=== PATIENT | male | born 1940 | race Caucasian/White ===

== ENCOUNTER → 2019-11-19 10:33 | Outpatient (BNVA) | payer MEDICARE, OTHER, SELFPAY | PROVIDERS: Family Provider Family Medicine; PCP Family Medicine; Visit Provider Urology | DX: N39.9 Disorder of urinary system, unspecified (principal); N40.0 Benign prostatic hyperplasia without lower urinary tract symptoms | CPT/HCPCS: 81001 ==

== ENCOUNTER 2019-12-11 07:28 | Outpatient (CLI) | payer MEDICARE, OTHER, SELFPAY ==
--- NOTE | 2019-12-11 08:00 | US_ITS ---
WS: [id number] ULTRASOUND RENAL TECHNIQUE: Ultrasound examination of both kidneys. CLINICAL INFORMATION: RENAL U/S AND [email or web address] 12/11/19 8:15AM. APPT TO FOLLOW COMPARISON: None. FINDINGS: RIGHT: Right kidney is normal in size and appearance. Echogenicity: Normal. Cortical thickness: 1.4 cm; Normal. Hydronephrosis: None. Perinephric fluid: None. Right kidney measures: 9.7 cm x 4.1 cm x 4.5 cm. LEFT: Left kidney is normal in size and appearance. Echogenicity: Normal. Cortical thickness: 1.4 cm; Normal. Hydronephrosis: None. Perinephric fluid: None. Left kidney measures: 10.3 cm x 4.3 cm x 5.2 cm. Normal visualized aorta. Bladder decompressed. US/US renal BI* [id number] IMPRESSION: Normal renal ultrasound. Bladder decompressed.
--- NOTE | 2019-12-11 08:15 | XRR_ITS ---
PROCEDURE INFORMATION: Exam: XR Abdomen, 1 View Exam date and time: 12/11/2019 7:21 AM Age: 79 years old Clinical indication: Condition or disease; Kidney or ureter condition; Calculus (stone) in ureter; Prior surgery; Surgery type: Colostomy; Additional info: Ureteral stone TECHNIQUE: Imaging protocol: XR of the abdomen. Views: Frontal supine view of the abdomen. 1 View. COMPARISON: No relevant prior studies available. FINDINGS: Gastrointestinal tract: There is increased retained stool throughout the colon, compatible with constipation. Organs: Punctate calcification projects over the expected location of the right kidney. Bones/joints: There is a moderate lumbar levoscoliosis. XR/XR KUB [id number] IMPRESSION: 1. Constipation. 2. Suspected right renal calculus.
== END 2019-12-11 07:29 | disposition home or self-care (01) ==
LOC: US 07:31
PROVIDERS: Family Provider Family Medicine; PCP Family Medicine; Visit Provider Urology
DX: N20.1 Calculus of ureter (principal); K59.00 Constipation, unspecified
CPT/HCPCS: 74018; 76770; 81001

== ENCOUNTER 2019-12-12 09:34 | Outpatient (CLI) | payer MEDICARE, OTHER, SELFPAY ==
--- NOTE | 2019-12-12 11:00 | CT_ITS ---
WS: [id number] CT ABDOMEN PELVIS TECHNIQUE: Noncontrast CT of the abdomen and pelvis with coronal and sagittal reformatted images. CLINICAL INFORMATION: Stone COMPARISON: CT 5 20,012 DLP: 883.[address] scans at [facility] use at least one of these dose optimization techniques: automat ed exposure control; mA and/or kV adjustment per patient size (includes targeted exams where dose is matched to clinical indication); or iterative reconstruction. FINDINGS: Prior postoperative appendectomy and colostomy. Dense cholelithiasis. No gallbladder wall thickening. Recommend follow-up with ultrasound. Noncontrast liver is normal. Lung bases are well aerated. Fatty atrophy of the pancreas. Noncontrast spleen is normal. Normal GE junction. Adrenal glands are normal . Mild aortic calcification. Adrenal glands are normal. No hydronephrosis in either kidney. Slightly prominent left extrarenal pelvis. No obstructing renal o r ureteral calculi. Tiny nonobstructing right renal parenchymal calculus. Heterogeneous enlarged pros [place]mond with indentation on the bladder. Prostate measures 5.4 x 3.7 x 5.2 CCM. TURP Defect Sigmoid colon is normal. Fecal retention in the colon. No periaortic lymphadenopathy. Normal caliber abdominal aorta. Low-attenuation left pelvic sidewall collection likely represents seroma with calcif ication. This is decreased in size since 2011 measuring 4.4 x 2.1 CM. Fat-containing left inguinal he rnia. CT/CT kidney stone [id number] IMPRESSION: 1. No obstructing renal or ureteral calculi. No hydronephrosis. 2. Heterogeneous enlarged prostate. Recommend correlation PSA. TURP defect. 3. Low-attenuation benign fluid collection left pelvis has decreased in size s kaitlyn 2011. 4. Dense cholelithiasis.
== END 2019-12-12 09:35 | disposition home or self-care (01) ==
LOC: RAD 09:38
PROVIDERS: PCP Family Medicine; Visit Provider Urology
DX: N20.9 Urinary calculus, unspecified (principal); N40.0 Benign prostatic hyperplasia without lower urinary tract symptoms; K80.20 Calculus of gallbladder without cholecystitis without obstruction
CPT/HCPCS: 74176

== ENCOUNTER → 2020-01-15 09:15 | Outpatient (BNVA) | payer MEDICARE, OTHER, SELFPAY | PROVIDERS: PCP Family Medicine; Visit Provider Dermatology | DX: D18.01 Hemangioma of skin and subcutaneous tissue (principal); L82.1 Other seborrheic keratosis; L57.0 Actinic keratosis; Z85.828 Personal history of other malignant neoplasm of skin | CPT/HCPCS: 17000; 17003; 99203 ==

== ENCOUNTER → 2020-03-20 09:26 | Outpatient (BNVA) | payer MEDICARE, OTHER, SELFPAY | PROVIDERS: PCP Family Medicine; Visit Provider Urology | DX: R35.0 Frequency of micturition (principal) | CPT/HCPCS: 81001 ==

== ENCOUNTER 2021-03-16 08:42 | Outpatient (CLI) | payer MEDICARE, OTHER, SELFPAY ==
--- NOTE | 2021-03-16 08:58 | CT_ITS ---
WS: [id number] CT ANGIOGRAM CAROTID ARTERIES HISTORY: TIA TECHNIQUE: CT angiogram is performed of the carotid arteries. During arterial injection imaging is ob tained from the skull base to the aortic arch in 1.25 mm imaging. Coronal and sagittal reformats are submitted, MIP imaging also reviewed. Additional multiplanar reformats of the carotid arteries are rios bmitted. NASCET criteria utilized. All CT scans at [facility] use at least one of these dose optimization techniques: automated exposure control; mA and/or kV adjustment per patient size (includ es targeted exams where dose is matched to clinical indication); or iterative reconstruction. CONTRAST: Visipaque 320; 95 mL IV. DLP: 1769.46 mGy.cm COMPARISON: 04/12/2018 Right carotid: Common carotid artery: Arises normally from the innominate artery. No significant plaque or stenosis. Internal carotid artery: Mild atherosclerotic plaque at the bifurcation. Small amount of scattered pl aque and intimal thickening in the bifurcation. Short segment in which the carotid arteries being obs cured at the skull base from the dental amalgam. The skull base there is scattered plaque through the cavernous sinuses but no high-grade occlusions. External carotid artery: Patent. Left carotid: Common carotid artery: Arises normally from the aortic arch. No significant stenosis. Internal carotid artery: Small amount of plaque at the bifurcation. No high-grade stenosis. Similar t o the prior study. External carotid artery: Patent. Right vertebral artery: Unremarkable. Left vertebral artery: Unremarkable. Arises normally from the left subclavian artery. Subclavian arteries: Small noncalcified plaque in the subclavians. No high-grade stenosis. Upper thorax: Normal. Thyroid gland: Prior thyroidectomy. Osseous structures: Moderate spondylitic changes in the cervical spine. Mild degenerative curvature a nd 2 mm anterolisthesis of C3. No fractures. Skull base: Negative. CT/CT angio neck [id number] IMPRESSION: 1. Less than 50% stenosis involving the cervical carotid arteries. No signific ant progression of disease since 04/12/2018. 2. Mild atherosclerosis subclavian arteries. 3. No cervical dissection or aneurysms. 4. Prior thyroidectomy.
[2021-03-16 10:12] LABS: Blood Urea Nitrogen 24 mg/dL (8-23)
[2021-03-16] MEDS: iodixanol 320 mg/mL 100mL Btl IV (10:39)
== END 2021-03-16 08:43 | disposition home or self-care (01) ==
LOC: RAD 08:46
PROVIDERS: PCP Family Medicine; Visit Provider Family Medicine
DX: I77.9 Disorder of arteries and arterioles, unspecified (principal); G45.9 Transient cerebral ischemic attack, unspecified; E89.0 Postprocedural hypothyroidism; I70.8 Atherosclerosis of other arteries
CPT/HCPCS: 70498; 82565; 84520

== ENCOUNTER → 2021-11-26 07:51 | Outpatient (BNVA) | payer MEDICARE, OTHER, SELFPAY | PROVIDERS: PCP Family Medicine; Visit Provider Family Medicine | DX: R42 Dizziness and giddiness (principal); G45.9 Transient cerebral ischemic attack, unspecified; E03.9 Hypothyroidism, unspecified | CPT/HCPCS: 80053; 84443; 85025 ==

== ENCOUNTER 2021-12-10 10:27 | Outpatient (CLI) | payer MEDICARE, OTHER, SELFPAY ==
[2021-12-10 11:53] LABS: Rapid Plasma Reagin Syphilis Nonreactive (Nonreactive); Thyroid Stimulating Hormone 0.37 uIU/mL (0.27-4.20)
[2021-12-10 12:28] LABS: Vitamin B12 608 pg/mL (232-1245)
[2021-12-11 13:12] LABS: Erythrocyte Sedimentation Rate 6 mm/hr (0-10)
[2021-12-11 16:47] LABS: Anti-Double Strand DNA AB 7 IU/mL; Jo-1 Antibody <1.0 NEG AI (<1.0 NEG); SM/RNP Antibodies <1.0 NEG AI (<1.0 NEG); SS-B/LA IGG <1.0 NEG AI (<1.0 NEG); Scleroderma Ab(Scl-70) Ab <1.0 NEG AI (<1.0 NEG); Ss-A/Ro Igg <1.0 NEG AI (<1.0 NEG)
== END 2021-12-10 10:28 | disposition home or self-care (01) ==
LOC: LAB 10:35
PROVIDERS: PCP Family Medicine; Visit Provider Family Medicine
DX: R41.3 Other amnesia (principal)
CPT/HCPCS: 82607; 84443; 85651; 86140; 86225; 86235; 86592

== ENCOUNTER → 2022-04-20 08:25 | Outpatient (BNVA) | payer MEDICARE, OTHER, SELFPAY | PROVIDERS: PCP Family Medicine; Visit Provider Family Medicine | DX: Z00.00 Encounter for general adult medical examination without abnormal findings (principal); Z85.828 Personal history of other malignant neoplasm of skin; R41.3 Other amnesia; E78.5 Hyperlipidemia, unspecified | CPT/HCPCS: 80053; 80061; 84443; 85025 ==

== ENCOUNTER → 2022-10-06 07:51 | Outpatient (BNVA) | payer MEDICARE, OTHER, SELFPAY | PROVIDERS: PCP Family Medicine; Visit Provider Dermatology | DX: D03.61 Melanoma in situ of right upper limb, including shoulder (principal); L57.0 Actinic keratosis | CPT/HCPCS: 11606; 12034; 17000; 17003 ==

== ENCOUNTER → 2022-10-20 07:54 | Outpatient (BNVA) | payer MEDICARE, OTHER, SELFPAY | PROVIDERS: PCP Family Medicine; Visit Provider Dermatology | DX: R22.9 Localized swelling, mass and lump, unspecified (principal); Z48.02 Encounter for removal of sutures | CPT/HCPCS: 99212 ==

== ENCOUNTER → 2022-10-26 09:51 | Outpatient (BNVA) | payer MEDICARE, OTHER, SELFPAY | PROVIDERS: PCP Family Medicine; Visit Provider Dermatology | DX: Y99.9 Unspecified external cause status (principal); Z86.006 Personal history of melanoma in-situ; T81.31XA Disruption of external operation (surgical) wound, not elsewhere classified, initial encounter | CPT/HCPCS: 99213 ==

== ENCOUNTER → 2022-11-16 15:52 | Outpatient (BNVA) | payer MEDICARE, OTHER, SELFPAY | PROVIDERS: PCP Family Medicine; Visit Provider Dermatology | DX: L57.0 Actinic keratosis (principal); T07.XXXA Unspecified multiple injuries, initial encounter; Y99.9 Unspecified external cause status; Z86.006 Personal history of melanoma in-situ | CPT/HCPCS: 17000; 17003; 99213 ==

== ENCOUNTER → 2023-02-23 14:18 | Outpatient (BNVA) | payer MEDICARE, OTHER, SELFPAY | PROVIDERS: PCP Family Medicine; Visit Provider Dermatology | DX: Z86.006 Personal history of melanoma in-situ (principal); L82.1 Other seborrheic keratosis; L81.4 Other melanin hyperpigmentation; D18.01 Hemangioma of skin and subcutaneous tissue; L57.0 Actinic keratosis; L82.0 Inflamed seborrheic keratosis; Z85.828 Personal history of other malignant neoplasm of skin; Z87.891 Personal history of nicotine dependence | CPT/HCPCS: 17000; 17003; 17110; 99213 ==

== ENCOUNTER → 2023-05-02 08:00 | Outpatient (BNVA) | payer MEDICARE, OTHER, SELFPAY | PROVIDERS: PCP Family Medicine; Visit Provider Family Medicine | DX: Z00.00 Encounter for general adult medical examination without abnormal findings (principal); I10 Essential (primary) hypertension; F03.90 Unspecified dementia, unspecified severity, without behavioral disturbance, psychotic disturbance, mood disturbance, and anxiety; N52.9 Male erectile dysfunction, unspecified; R41.3 Other amnesia | CPT/HCPCS: 80053; 80061; 84403; 84443; 85025 ==

== ENCOUNTER 2023-05-04 20:11 | Emergency (ER) | payer MEDICARE, OTHER, SELFPAY ==
[2023-05-04 20:15] VITALS: BP 207/80; PULSE 48; RESP 17; O2SAT 99; BMI 23.0
--- NOTE | 2023-05-04 20:28 | ECG_ITS ---
[facility] Test Date: 2023-05-04 Pat Name: Delroy Adam Department: Room: Gender: Male Batter Out: : 1940 Requested By: Jimbo Cruz Order Number: [id number] Julito MD: Jesus Hernandez M.D. Measurements Intervals [place] Rate: 47 P: 64 MS: 231 QRS: -73 QRSD: 137 T: 46 QT: 432 QTc: 385 Interpretive Statements SINUS BRADYCARDIA WITH FIRST DEGREE AV BLOCK LEFT AXIS DEVIATION [QRS AXIS < -30] INTRAVENTRICULAR CONDUCTION DELAY [130+ ms QRS DURATION] MODERATE VOLTAGE CRITERIA FOR LVH, CONSIDER NORMAL VARIANT [MEETS CRITERIA IN ONE OF: R(aVL), S(V1), R(V5), R(V5/V6)+S(V1)] Compared to ECG 03/27/2018 23:29:02 Right bundle-branch block no longer present Electronically Signed On 05-05-2023 12:50:19 DISEASE EDUCATION SPECIALIST by Jesus Hernandez M.D. [id number]
--- NOTE | 2023-05-04 21:04 | XRR_ITS ---
PROCEDURE INFORMATION: Exam: XR Chest Exam date and time: 05/04/2023 9:51 PM Age: 82 years old Clinical indication: Other: Dizziness; Additional info: Dizziness, confusion, near syncope, HTN TECHNIQUE: Imaging protocol: Radiologic exam of the chest. Views: 1 view. COMPARISON: CR XR chest 1V [id number] 03/27/2018 5:42 PM FINDINGS: Lungs: Unremarkable. No consolidation. Pleural spaces: Unremarkable. No pleural effusion. No pneumothorax. Heart/Mediastinum: Unremarkable. No cardiomegaly. Bones/joints: Unremarkable. XR/XR chest 1V portable [id number] IMPRESSION: No acute findings.
--- NOTE | 2023-05-04 21:04 | CTR_ITS ---
PROCEDURE INFORMATION: Exam: CT Head Without Contrast Exam date and time: 05/04/2023 9:48 PM Age: 82 years old Clinical indication: Altered mental status/memory loss and dizziness; Confusion or disorientation; Additional info: Dizziness, confusion, near syncope TECHNIQUE: Imaging protocol: Computed tomography of the head without contrast. Radiation optimization: All CT scans at this facility use at least one of these dose optimization techniques: automated exposure control; mA and/or kV adjustment per patient size (includes targeted exams where dose is matched to clinical indication); or iterative reconstruction. REPORTING DATA: Count of CT and Cardiac NM exams in prior 12 months: This patient has received 0 known CTs and 0 known cardiac nuclear medicine studies in the 12 months prior to the current study. COMPARISON: MR head wo/w con [id number] 03/28/2018 2:40 PM RADIATION DOSE METRICS: Total DLP (mGy-cm): 1098 FINDINGS: Brain: Mild diffuse white matter disease likely reflecting chronic microvascular ischemic changes. Cerebral ventricles: No ventriculomegaly. Paranasal sinuses: Visualized sinuses are unremarkable. No fluid levels. Mastoid air cells: Visualized mastoid air cells are well aerated. Bones/joints: Unremarkable. No acute fracture. Soft tissues: Unremarkable. CT/CT head wo con* [id number] IMPRESSION: Negative for intracranial hemorrhage mass effect.
[2023-05-04 21:14] LABS: Basophils % 0.8 %; Eosinophils # 0.2 10^3/uL (0.0-0.8); Eosinophils % 3.8 %; Lymphocytes # 0.9 10^3/uL (0.8-4.8); Lymphocytes % 17.9 %; Mean Corpuscular HGB Conc 33.8 g/dL (30-55); Mean Corpuscular Hemoglobin 33.7 pg (27-33); Mean Corpuscular Volume 99.8 fl (82-101); Mean Platelet Volume 9.5 fL (7.4-10.4); Monocytes # 0.6 10^3/uL (0.2-0.9); Monocytes % 10.9 %; Neutrophils # 3.33 10^3/uL (1.8-7.7); Neutrophils % 66.2 %; Nucleated Red Blood Cells % 0 %; Platelet Count 137 10^3/cmm (157-399); Red Blood Count 4.21 10^6/uL (3.85-5.65); Red Cell Distribution Width 11.8 % (12.1-15.1); White Blood Count 5.03 10^3/uL (3.29-11.43)
--- NOTE | 2023-05-04 21:28 | W.ED.DIZZY ---
HPI - Dizziness General: Chief Complaint: Dizziness Stated Complaint: near syncope Time Seen by Provider: 05/04/23 20:57 History of Present Illness: HPI Narrative: Patient presents to the ER by EMS with family at bedside. Patient states he does not have any problems at all and no complaints at this time. Family states patient has had some worsening confusion over the last several days and does have a history of Alzheimer's. Patient went to the doctor today for just a normal checkup and med refills and when the daughter and son was helping him get into the car he nearly had a syncopal episode so they called EMS. Patient also had a near syncopal episode at suppertime. Patient denies any complaints at this time. Patient does say he rides a bicycle a lot so he has a low resting heart rate. Review of Systems General: Reports: 10 or more systems reviewed and unremarkable except in HPI and below PFSH ED PFSH: Medical History BPH (benign prostatic hyperplasia) Dementia GERD (gastroesophageal reflux disease) History of nonmelanoma skin cancer Hydrocele Hyperlipemia Hypertension Hypothyroid Skin cancer Urinary frequency Surgical History H/O eye surgery H/O hernia repair H/O knee surgery H/O transurethral resection of prostate H/O vasectomy S/P appendectomy S/P thyroidectomy S/P tonsillectomy and adenoidectomy Family History Family/Other Hypertension Hyperlipidemia Social History Smoking and tobacco/nicotine status: former use of tobacco/nicotine Alcohol intake: current Alcohol intake frequency: 0-2 Drinks per Day Alcohol type: wine Substance/Drug Use: never Marital status: Physical Exam Const: COMMON NORMALS: no acute distress, average body habitus, patient oriented x3, no limitations, healthy appearing, alert and well nourished HENMT: COMMON NORMALS: normocephalic, atraumatic, hearing grossly normal bilaterally, external ears normal, Normal external nose present, moist oral mucous membranes and oropharynx normal HEAD & SCALP: normocephalic and atraumatic NOSE: Normal external nose present EXTERNAL EAR: Yes external ears normal Eye: COMMON NORMALS: Equal, round and reactive pupils present, EOMs intact bilaterally, conjunctivae normal and no scleral icterus CONJUNCTIVA: Yes conjunctivae normal PUPIL: Yes Equal, round and reactive pupils present Neck/C-Spine: COMMON NORMALS: full ROM, no lymphadenopathy, supple, no meningeal signs, no JVD and Thyroid normal THYROID: Thyroid normal Chest: COMMONS NORMALS: normal inspection of the chest and normal palpation of entire chest wall Resp: COMMON NORMALS: normal respiratory effort, No retractions, No use of accessory muscles and clear to auscultation bilaterally AUSCULTATION: clear to auscultation bilaterally Cardio: COMMON NORMALS: no JVD, regular rhythm, S1 normal heart sound present, S2 normal heart sound present, No gallops present (Cardio), No clicks present (Cardio), No murmurs present (Cardio) and No rub (Cardio); negative for regular rate (Bradycardic) RATE: abnormal rate (Bradycardic) RHYTHM: regular rhythm HEART SOUNDS: S1 normal heart sound present and S2 normal heart sound present GI: COMMON NORMALS: Normal to inspection, nondistended, normoactive bowel sounds present, Soft to palpation, non-tender, No hepatosplenomegaly present and no masses PALPATION: Yes Soft to palpation and Yes No hepatosplenomegaly present Neuro: COMMON NORMALS: patient oriented x3 SENSORIUM/ORIENTATION: Yes alert MENINGEAL SIGNS: Yes no meningeal signs Course Vital Signs: Vital signs: Vital Signs Pulse Rate 47 L 05/04/23 23:55 Respiratory Rate 18 05/04/23 23:55 Blood Pressure 144/53 05/04/23 23:55 Pulse Oximetry 96 05/04/23 23:55 Oxygen Delivery Me thod Room Air 05/04/23 22:14 MDM - Dizziness Medical Decision Making Patient presents to the ER for near syncope with some increased confusion. Patient was worked up with EKGs, chest x-rays, head CT, blood work and urinalysis. All of which did not show any acute cause of patient's symptomatology. These findings was discussed with patient and family. Patient be discharged home to follow-up with his PCP for further evaluation and treatment. Differential Diagnosis Unlikely adverse reaction to drug, benign paroxysmal positional vertigo, orthostatic hypotension, vertebral basilar insufficiency, cerebrovascular accident, acute vestibular neuronitis or transient cerebral ischemia Medical Records I reviewed the patient's medical records. Lab Data I reviewed the patient's lab results. 05/04/23 20:05/04/23: Radiology Impressions Chest X-Ray 05/04/23: IMPRESSION: No acute findings. Head CT 05/04/23: IMPRESSION: Negative for intracranial hemorrhage mass effect. Laboratory Results WBC 5.03 10^3/uL (3.29-11.43) 05/04/23: RBC 4.21 10^6/uL (3.85-5.65) 05/04/23: Hgb 14.20 g/dL (11.27-16.99) 05/04/23: Hct 42.0 % (37-53) 05/04/23 MCV 99.8 fl (82-101) 05/04/23 MCH 33.7 pg (27-33) H 05/04/23 MCHC 33.8 g/dL (30-55) 05/04/23 RDW 11.8 % (12.1-15.1) L 05/04/23: Plt Count 137 10^3/cmm (157-399) L 05/04/23 MPV 9.5 fL (7.4-10.4) 05/04/23: Neut % (Auto) 66.2 % 05/04/23: Lymph % (Auto) 17.9 % 05/04/23: [place] % (Auto) 10.9 % 05/04/23 Eos % (Auto) 3.8 % 05/04/23: Baso % (Auto) 0.8 % 05/04/23 Neut # (Auto) 3.33 10^3/uL (1.8-7.7) 05/04/23: Lymph # (Auto) 0.9 10^3/uL (0.8-4.8) 05/04/23 [place] # (Auto) 0.6 10^3/uL (0.2-0.9) 05/04/23: Eos # (Auto) 0.2 10^3/uL (0.0-0.8) 05/04/23: Baso # (Auto) 0.0 10^3/uL (0.0-0.1) 05/04/23 20: Nucleated RBC % (auto) 0 % 05/04/23 20: Nucleated RBCs # 0.0 /100WBC 05/04/23 20: Sodium 140 mmol/L (136-145) 05/04/23 20: Potassium 4.0 mmol/L (3.5-5.1) 05/04/23: Chloride 100 mmol/L (98-107) 05/04/23: Carbon Dioxide 29 mmol/L (22-29) 05/04/23: Anion Gap 15.0 (5-19) 05/04/23: BUN 26 mg/dL (8-23) H 05/04/23 20: Creatinine 1.1 mg/dL (0.7-1.2) 05/04/23 20: GFR Calculation Not Reportable 05/04/23: Glucose 117 mg/dL (65-115) H 05/04/23 20: Calculated Osmolality 296 mOsm/kg (285-295) H 05/04/23 20: Calcium 9.4 mg/dL (8.5-10.5) 05/04/23: Phosphorus 3.3 mg/dL (2.5-4.5) 05/04/23 20: Magnesium 2.0 mg/dL (1.7-2.3) 05/04/23: Total Bilirubin 0.4 mg/dL (0.15-1.2) 05/04/23: AST 25 U/L (0-40) 05/04/23 20: ALT 22 U/L (0-41) 05/04/23 20: Alkaline Phosphatase 97 U/L (40-130) 05/04/23 20: Total Protein 6.9 g/dL (6.6-8.7) 05/04/23 20: Albumin 4.3 g/dL (3.5-5.2) 05/04/23 20: Globulin 2.6 g/dL (1.3-4.6) 05/04/23 20: TSH 2.03 uIU/mL (0.27-4.20) 05/04/23 20:28 Urine Color Yellow (Yellow) 05/04/23 22:10 Urine Appearance Clear (CLEAR) 05/04/23 22:10 Urine pH 6 (5-7) 05/04/23 22:10 Ur Specific [place] 1.015 (1.005-1.030) 05/04/23 22:10 Urine Protein Neg (Negative) 05/04/23 22:10 Urine Glucose (UA) Norm (Normal) 05/04/23 22:10 Urine Ketones Negative (Negative) 05/04/23 22:10 Urine Blood Neg (Negative) 05/04/23 22:10 Urine Nitrate Negative (Negative) 05/04/23 22:10 Urine Bilirubin Neg (Negative) 05/04/23 22:10 Urine Urobilinogen Norm mg/dL (Negative) 05/04/23 22:10 Ur Leukocyte Esterase Negative (Negative) 05/04/23 22:10 All radiology interpretation(s) finalized by discharge EKG Data EKG 1: I personally reviewed and interpreted this EKG as follows: EKG interpretation date: 05/04/23 EKG interpretation time: 20:28 Prior EKG tracings: not available for review Interpretation: EKG shows ventricular rate 47 beats a minute, DE interval 231, QRS duration 137, QTc of 396, sinus bradycardia with first-degree AV block, left axis deviation, intraventricular conduction delay Discharge Plan Discharge Patient Disposition: Home Clinical Impression: Near syncope, Confusion Condition: Stable Prescriptions: No Action aspirin [Adult Aspirin Regimen] 81 mg tablet,delayed release (DR/EC) 81 mg PO DAILY omega-3 fatty acids [Fish Oil Concentrate] 1,000 mg capsule 1,000 mg PO DAILY multivitamin Tablet 1 tab PO DAILY Zyrtec 10 mg capsule PO tadalafil [Cialis] 5 mg tablet 5 mg PO .Q3days PRN (Reason: sexual activity) Qty: 30 11RF hydrochlorothiazide 25 mg tablet 25 mg PO DAILY Qty: 90 3RF levothyroxine 150 mcg tablet See Rx Instructions .ROUTE .COMPLEX Qty: 90 3RF Dose Instruction: TAKE 1 TABLET BY MOUTH EVERY DAY Rx Instructions: TAKE 1 TABLET BY MOUTH EVERY DAY losartan 25 mg tablet See Rx Instructions .ROUTE .COMPLEX Qty: 90 3RF Dose Instruction: TAKE 1 TABLET BY MOUTH EVERY DAY Rx Instructions: TAKE 1 TABLET BY MOUTH EVERY DAY lovastatin 20 mg tablet See Rx Instructions .ROUTE .COMPLEX Qty: 90 3RF Dose Instruction: TAKE 1 TABLET BY MOUTH EVERY DAY Rx Instructions: TAKE 1 TABLET BY MOUTH EVERY DAY memantine [Namenda] 10 mg tablet 10 mg PO BID Qty: 60 5RF temazepam 30 mg capsule 30 mg PO BEDTIME PRN (Reason: sleep) Qty: 30 0RF RSVPreF3 antigen-AS01E (PF) 120 mcg/0.5 mL suspension for reconstitution 0.5 ml IM ONCE Qty: 1 0RF Discharge Orders: Discharge ED (Routine); Ordered 05/04/23 Ordered By: Jimbo Cruz Referrals: Jovanny Caraballo MD [Primary Care Provider] - 1 week Patient Instructions: Confusion, Near Syncope (ED) Activity Restrictions/Additional Instructions: The test performed in your stay at the ER including blood work, urinalysis, chest x-ray, head CT did not show any acute causes of your symptomatology. Please follow-up with your family practice physician for further evaluation and treatment as needed. Coding Level of Care Code ED Director Of Litigation for Delta Ledezma
[2023-05-04 21:33] LABS: Alanine Aminotransferase 22 U/L (0-41); Albumin Level 4.3 g/dL (3.5-5.2); Alkaline Phosphatase 97 U/L (40-130); Aspartate Amino Transferase 25 U/L (0-40); Blood Urea Nitrogen 26 mg/dL (8-23); Calcium 9.4 mg/dL (8.5-10.5); Carbon Dioxide 29 mmol/L (22-29); Chloride 100 mmol/L (98-107); Globulin 2.6 g/dL (1.3-4.6); Glucose 117 mg/dL (65-115); Osmolality Calculated 296 mOsm/kg (285-295); Phosphorus 3.3 mg/dL (2.5-4.5); Sodium 140 mmol/L (136-145); Thyroid Stimulating Hormone 2.03 uIU/mL (0.27-4.20); Total Bilirubin 0.4 mg/dL (0.15-1.2); Total Protein 6.9 g/dL (6.6-8.7)
[2023-05-04] MEDS: sodium chloride 0.9% 1,000 ML 999 ML IV (21:46)
[2023-05-04 21:52] VITALS: BP 103/67; PULSE 60; RESP 18; O2SAT 99
[2023-05-04 22:14] VITALS: BP 184/91; PULSE 51; RESP 18; O2SAT 97
[2023-05-04 22:15] LABS: Add Urine Microscopic? NO; Charge for UA Resulting for Rev
[2023-05-04 22:17] LABS: Bilirubin Urine Neg (Negative); Blood Urine Neg (Negative); Glucose Urine UA Norm (Normal); Ketones Urine Negative (Negative); Nitrate Urine Negative (Negative); Protein Urine Neg (Negative); Specific Gravity, Urine 1.015 (1.005-1.030); Urine Appearance Clear (CLEAR); Urine Color Yellow (Yellow); Urobilinogen Urine Norm (Negative); pH Urine 6 (5-7)
[2023-05-04 22:18] LABS: Leukocyte Esterase Urine Negative (Negative)
[2023-05-04 22:38] VITALS: BP 164/61
[2023-05-04 23:06] VITALS: BP 181/70; PULSE 47; RESP 18; O2SAT 96
[2023-05-04 23:55] VITALS: BP 144/53; PULSE 47; RESP 18; O2SAT 96
== END 2023-05-05 00:15 | disposition home or self-care (01) ==
PROVIDERS: Emergency Provider Emergency Medicine; PCP Family Medicine
DX: R55 Syncope and collapse (principal); R41.0 Disorientation, unspecified; R00.1 Bradycardia, unspecified; I44.0 Atrioventricular block, first degree; Z87.891 Personal history of nicotine dependence; G30.9 Alzheimer's disease, unspecified; F02.80 Dementia in other diseases classified elsewhere, unspecified severity, without behavioral disturbance, psychotic disturbance, mood disturbance, and anxiety
CPT/HCPCS: 70450; 71045; 80053; 81003; 83735; 84100; 84443; 85025; 93005; 93010; 96360; 99285; J7030

== ENCOUNTER 2023-05-11 04:58 | Emergency (ER) | payer MEDICARE, OTHER, SELFPAY ==
[2023-05-11 05:09] VITALS: BP 168/83; PULSE 57; RESP 18; TEMP 36.6; O2SAT 98; BMI 23.0
--- NOTE | 2023-05-11 05:11 | CTR_ITS ---
PROCEDURE INFORMATION: Exam: CT Abdomen And Pelvis Without Contrast Exam date and time: 05/11/2023 5:25 AM Age: 83 years old Clinical indication: Abdominal pain; Flank; Left; Prior surgery; Surgery date: 6+ months; Surgery type: Ruptured diverticulum; Additional info: Left flank pain TECHNIQUE: Imaging protocol: Computed tomography of the abdomen and pelvis without contrast. Radiation optimization: All CT scans at this facility use at least one of these dose optimization techniques: automated exposure control; mA and/or kV adjustment per patient size (includes targeted exams where dose is matched to clinical indication); or iterative reconstruction. REPORTING DATA: Count of CT and Cardiac NM exams in prior 12 months: This patient has received [address] and 0 known cardiac nuclear medicine studies in the 12 months prior to the current study. COMPARISON: CT kidney stone [id number] 12/12/2019 9:36 AM RADIATION DOSE METRICS: Total DLP (mGy-cm): 467.87 FINDINGS: Lungs: No consolidation. There is an 8 mm left lower lobe pulmonary nodule new since previous exam from 2019 Pleural spaces: No pleural effusion. Liver: Unremarkable appearance liver. Gallbladder and bile ducts: Contracted gallbladder containing small stones. Pancreas: Fatty infiltration of the pancreas. Spleen: The spleen is unremarkable. Adrenal glands: Normal. No mass. Kidneys and ureters: No calcified ureteral stones. No hydronephrosis. Nonobstructing right renal calculus. Stomach and bowel: No dilated bowel loops. No high-grade bowel obstruction. Appendix: The appendix is not identified. There are no focal inflammatory changes in the right lower quadrant. Intraperitoneal space: Nonspecific mesenteric edema. No free air. Vasculature: Atherosclerotic changes of the aorta. No portal venous gas. Lymph nodes: No enlarged lymph nodes. Urinary bladder: Unremarkable as visualized. Reproductive: Prostate gland is enlarged. Bones/joints: Degenerative changes of the lumbar spine. Soft tissues: Unremarkable. CT/CT kidney stone [id number] IMPRESSION: 1. Cholelithiasis. 2. Enlarged prostate gland. Correlate with PSA. 3. 8 mm left lower lobe pulmonary nodule, new. Follow-up evaluation with FDG PET-CT.
--- NOTE | 2023-05-11 05:12 | ED_ITS ---
Documented by User: Jose F Méndez MD 05/11/23 05:13 HPI - Abdominal Pain 2 General: Chief Complaint: Abdominal Pain Stated Complaint: left side pain Time Seen by Provider: 05/11/23 05:08 Source: patient Mode of arrival: ambulatory Limitations: no limitations History of Present Illness: 83-year-old male states he had gotten ou t of bed an hour ago went to urinate started having severe left-sided flank pain. He states the pain is currently 9 out of 10 he denies any dysuria. States he has no tenderness to touch states it feels like the pain is on the inside he denies any chest pain denies any vomiting. He has no history of kidney stones. Associated Symptoms: Denies chills, diarrhea, dysuria, fever(s), nausea and vomiting Review of Systems 2 Const: Denies: fever(s), chills, body aches or change in appetite ENMT: Denies: throat pain or dental pain Card: Denies: chest pain Resp: Denies: dyspnea GI: Denies: abdominal pain, nausea, vomiting or diarrhea : Reports: flank pain; Denies: dysuria Musc: Denies: neck pain or back pain Skin/Breast: Denies: rash Neuro: Denies: headache(s) PFSH ED 2 PFSH: Medical History Dementia History of nonmelanoma skin cancer Hypothyroid GERD (gastroesophageal reflux disease) Urinary frequency Hyperlipemia Hydrocele Skin cancer Hypertension BPH (benign prostatic hyperplasia) Surgical History H/O transurethral resection of prostate S/P tonsillectomy and adenoidectomy H/O knee surgery S/P appendectomy H/O hernia repair H/O eye surgery H/O vasectomy S/P thyroidectomy Family History Family/Other Hypertension Hyperlipidemia Social History Smoking and tobacco/nicotine status: former use of tobacco/nicotine Alcohol intake: current Alcohol intake frequency: 0-2 Drinks per Day Alcohol type: wine Substance/Drug Use: never Marital status: Physical Exam 2 Const: COMMON NORMALS: no acute distress, patient oriented x3 and healthy appearing HENMT: COMMON NORMALS: normocephalic and atraumatic HEAD & SCALP: n ormocephalic and atraumatic Eye: COMMON NORMALS: Equal, round and reactive pupils present and EOMs intact bilaterally PUPIL: Yes Equal, round and reactive pupils present Neck/C-Spine: COMMON NORMALS: full ROM and supple Chest: COMMONS NORMALS: normal inspection of the chest and normal palpation of entire chest wall Resp: COMMON NORMALS: normal respiratory effort, No retractions, No use of accessory muscles and clear to auscultation bilaterally AUSCULTATION: clear to auscultation bilaterally Cardio: COMMON NORMALS: regular rate, regular rhythm and No murmurs present (Cardio) RATE: regular rate RHYTHM: regular rhythm GI: COMMON NORMALS: Normal to inspection, nondistended, normoactive bowel sounds present, Soft to palpation, non-tender and no masses PALPATION: Yes Soft to palpation Extremity: COMMON NORMALS: normal to inspection and full ROM Neuro: COMMON NORMALS: patient oriented x3, moves all extremities and no focal motor deficits Psych: COMMON NORMALS: mental status grossly normal, Normal thought process present and cooperative THOUGHT PROCESS: Normal thought process present Skin: COMMON NORMALS: no rashes or lesions noted and no wounds GENERAL SKIN EXAM: no rashes or lesions noted Course 2 Vital Signs: Vital signs: Vital Signs Temperature 97.8 F 05/11/23 05:09 Pulse Rate 59 L 05/11/23 06:47 Respiratory Rate 18 05/11/23 06:47 Blood Pressure 168/83 05/11/23 05:55 Pulse Oximetry 98 05/11/23 06:47 Oxygen Delivery Me thod Room Air 05/11/23 05:55 MDM - Abdominal Pain Lab Data 05/11/23 05:23 05/11/23 05:23 Labs/Radiology: Radiology Impressions Abdomen/Pelvis CT 05/11/23 05:11 IMPRESSION: 1. Cholelithiasis. 2. Enlarged prostate gland. Correlate with PSA. 3. 8 mm left lower lobe pulmonary nodule, new. Follow-up evaluation with FDG PET-CT. Laboratory Results WBC 5.00 10^3/uL (3.29-11.43) 05/11/23 05:23 RBC 4.50 10^6/uL (3.85-5.65) 05/11/23 05:23 Hgb 15.20 g/dL (11.27-16.99) 05/11/23 05:23 Hct 44.7 % (37-53) 05/11/23 05:23 MCV 99.3 fl (82-101) 05/11/23 05:23 MCH 33.8 pg (27-33) H 05/11/23 05: MCHC 34.0 g/dL (30-55) 05/11/23 05: RDW 11.8 % (12.1-15.1) L 05/11/23 05:23 Plt Count 135 10^3/cmm (157-399) L 05/11/23 05:23 MPV 9.0 fL (7.4-10.4) 05/11/23 05:23 Neut % (Auto) 68.8 % 05/11/23 05:23 Lymph % (Auto) 21.4 % 05/11/23 05:23 [place] % (Auto) 7.6 % 05/11/23 05:23 Eos % (Auto) 1.4 % 05/11/23 05:23 Baso % (Auto) 0.6 % 05/11/23 05:23 Neut # (Auto) 3.44 10^3/uL (1.8-7.7) 05/11/23 05:23 Lymph # (Auto) 1.1 10^3/uL (0.8-4.8) 05/11/23 05:23 [place] # (Auto) 0.4 10^3/uL (0.2-0.9) 05/11/23 05:23 Eos # (Auto) 0.1 10^3/uL (0.0-0.8) 05/11/23 05:23 Baso # (Auto) 0.0 10^3/uL (0.0-0.1) 05/11/23 05:23 Nucleated RBC % (auto) 0 % 05/11/23 05:23 Nucleated RBCs # 0.0 /100WBC 05/11/23 05:23 Sodium 139 mmol/L (136-145) 05/11/23 05:23 Potassium 3.8 mmol/L (3.5-5.1) 05/11/23 05:23 Chloride 102 mmol/L (98-107) 05/11/23 05:23 Carbon Dioxide 28 mmol/L (22-29) 05/11/23 05:23 Anion Gap 12.8 (5-19) 05/11/23 05:23 BUN 16 mg/dL (8-23) 05/11/23 05:23 Creatinine 0.9 mg/dL (0.7-1.2) 05/11/23 05:23 GFR Calculation Not Reportable 05/11/23 05:23 Glucose 133 mg/dL (65-115) H 05/11/23 05:23 Calculated Osmolality 291 mOsm/kg (285-295) 05/11/23 05:23 Calcium 9.0 mg/dL (8.5-10.5) 05/11/23 05:23 Total Bilirubin 0.5 mg/dL (0.15-1.2) 05/11/23 05:23 AST 24 U/L (0-40) 05/11/23 05:23 ALT 22 U/L (0-41) 05/11/23 05:23 Alkaline Phosphatase 85 U/L (40-130) 05/11/23 05:23 Total Protein 6.5 g/dL (6.6-8.7) L 05/11/23 05:23 Albumin 4.0 g/dL (3.5-5.2) 05/11/23 05:23 Globulin 2.5 g/dL (1.3-4.6) 05/11/23 05:23 Lipase 37 U/L (13-60) 05/11/23 05:23 Urine Color Yellow (Yellow) 05/11/23 07:25 Urine Appearance Clear (CLEAR) 05/11/23 07:25 Urine pH 8 (5-7) H 05/11/23 07:25 Ur Specific [place] 1.005 (1.005-1.030) 05/11/23 07:25 Urine Protein Neg (Negative) 05/11/23 07:25 Urine Glucose (UA) Norm (Normal) 05/11/23 07:25 Urine Ketones Negative (Negative) 05/11/23 07:25 Urine Blood Neg (Negative) 05/11/23 07:25 Urine Nitrate Negative (Negative) 05/11/23 07:25 Urine Bilirubin Neg (Negative) 05/11/23 07:25 Urine Urobilinogen Neg mg/dL (Negative) 05/11/23 07:25 Ur Leukocyte Esterase Negative (Negative) 05/11/23 07:25 Discharge Plan Discharge Patient Disposition: Home Clinical Impression: Rib pain on left side, Constipation, Incidental pulmonary nodule Condition: Stable Prescriptions: New tramadol 50 mg tablet 25 mg PO Q6H PRN (Reason: pain) Qty: 10 0RF No Action aspirin [Adult Aspirin Regimen] 81 mg tablet,delayed release (DR/EC) 81 mg PO DAILY omega-3 fatty acids [Fish Oil Concentrate] 1,000 mg capsule 1,000 mg PO DAILY multivitamin Tablet 1 tab PO DAILY Zyrtec 10 mg capsule PO tadalafil [Cialis] 5 mg tablet 5 mg PO .Q3days PRN (Reason: sexual activity) Qty: 30 11RF hydrochlorothiazide 25 mg tablet 25 mg PO DAILY Qty: 90 3RF levothyroxine 150 mcg tablet See Rx Instructions .ROUTE .COMPLEX Qty: 90 3RF Dose Instruction: TAKE 1 TABLET BY MOUTH EVERY DAY Rx Instructions: TAKE 1 TABLET BY MOUTH EVERY DAY losartan 25 mg tablet See Rx Instructions .ROUTE .COMPLEX Qty: 90 3RF Dose Instruction: TAKE 1 TABLET BY MOUTH EVERY DAY Rx Instructions: TAKE 1 TABLET BY MOUTH EVERY DAY lovastatin 20 mg tablet See Rx Instructions .ROUTE .COMPLEX Qty: 90 3RF Dose Instruction: TAKE 1 TABLET BY MOUTH EVERY DAY Rx Instructions: TAKE 1 TABLET BY MOUTH EVERY DAY memantine [Namenda] 10 mg tablet 10 mg PO BID Qty: 60 5RF temazepam 30 mg capsule 30 mg PO BEDTIME PRN (Reason: sleep) Qty: 30 0RF RSVPreF3 antigen-AS01E (PF) 120 mcg/0.5 mL suspension for reconstitution 0.5 ml IM ONCE Qty: 1 0RF Discharge Orders: Discharge ED (Routine); Ordered 05/11/23 Ordered By: Titus Pruett Referrals: Jovanny Caraballo MD [Primary Care Provider] - Discharge Diet: Usual diet Discharge Activity: Resume usual activity Patient Instructions: Opioid Safety, Pain Management Activity Restrictions/Additional Instructions: Thank you for choosing [facility] for your healthcare needs today. Please realize this is an emergency room and that we are providing you with a medical screening exam and this may not be complete and all inclusive of all the testing and or work up that you may need to determine your ailment or severity of your illness. It is very important that you follow up as instructed or that you return to the Emergency Department should you have concerns or if your condition changes or worsens in any way. You were seen today for left flank pain. Laboratory studies and CT done were unremarkable. There was an incidental finding of a small pulmonary nodule at the base of the left lung this should be followed up as an outpatient with Dr. Blood. You were given pain medications to use as needed. There was no sign of infection no sign of kidney stone no sign of bowel obstruction. You did have some mild constipation you can use some [id number] laxative to attempt to relieve this. Coding Level of Care Code ED Cementer for Chg Fwd Documented by User: Titus Pruett DO 05/11/23 08:58 HPI - Abdominal Pain 2 General: Chief Complaint: Abdominal Pain Stated Complaint: left side pain Time Seen by Provider: 05/11/23 05:08 [facility] ED 2 PFSH: Medical History Dementia History of nonmelanoma skin cancer Hypothyroid GERD (gastroesophageal reflux disease) Urinary frequency Hyperlipemia Hydrocele Skin cancer Hypertension BPH (benign prostatic hyperplasia) Surgical History H/O transurethral resection of prostate S/P tonsillectomy and adenoidectomy H/O knee surgery S/P appendectomy H/O hernia repair H/O eye surgery H/O vasectomy S/P thyroidectomy Family History Family/Other Hypertension Hyperlipidemia Social History Smoking and tobacco/nicotine status: former use of tobacco/nicotine Alcohol intake: current Alcohol intake frequency: 0-2 Drinks per Day Alcohol type: wine Substance/Drug Use: never Marital status: Course 2 Vital Signs: Vital signs: Vital Signs Temperature 97.8 F 05/11/23 05:09 Pulse Rate 59 L 05/11/23 06:47 Respiratory Rate 18 05/11/23 06:47 Blood Pressure 168/83 05/11/23 05:55 Pulse Oximetry 98 05/11/23 06:47 Oxygen Delivery Me thod Room Air 05/11/23 05:55 MDM - Abdominal Pain Medical Decision Making Care assumed at change of shift. Chart reviewed patient has pain in the left lower ribs. CT labs did not show any significant abnormalities. He has a little bit of constipation with retained stool is mostly at the hepatic flexure he has some reproducible pain with palpation along the lower ribs on the left side in the area of concern. He had a similar presentation in December 2019. He did have an incidental pulmonary nodule that will need further work-up as well. We will discharge patient home with pain medications can use some [id number]-[id number] laxatives for the constipation. He has a follow-up appointment with his Dr. Caraballo tomorrow encouraged to keep that appointment. Medical Records I reviewed the patient's medical records. Lab Data I reviewed the patient's lab results. 05/11/23 05:23 05/11/23 05:23 Labs/Radiology: Radiology Impressions Abdomen/Pelvis CT 05/11/23 05:11 IMPRESSION: 1. Cholelithiasis. 2. Enlarged prostate gland. Correlate with PSA. 3. 8 mm left lower lobe pulmonary nodule, new. Follow-up evaluation with FDG PET-CT. Laboratory Results WBC 5.00 10^3/uL (3.29-11.43) 05/11/23 05:23 RBC 4.50 10^6/uL (3.85-5.65) 05/11/23 05:23 Hgb 15.20 g/dL (11.27-16.99) 05/11/23 05:23 Hct 44.7 % (37-53) 05/11/23 05:23 MCV 99.3 fl (82-101) 05/11/23 05:23 MCH 33.8 pg (27-33) H 05/11/23 05:23 MCHC 34.0 g/dL (30-55) 05/11/23 05:23 RDW 11.8 % (12.1-15.1) L 05/11/23 05:23 Plt Count 135 10^3/cmm (157-399) L 05/11/23 05:23 MPV 9.0 fL (7.4-10.4) 05/11/23 05:23 Neut % (Auto) 68.8 % 05/11/23 05:23 Lymph % (Auto) 21.4 % 05/11/23 05:23 [place] % (Auto) 7.6 % 05/11/23 05:23 Eos % (Auto) 1.4 % 05/11/23 05:23 Baso % (Auto) 0.6 % 05/11/23 05:23 Neut # (Auto) 3.44 10^3/uL (1.8-7.7) 05/11/23 05:23 Lymph # (Auto) 1.1 10^3/uL (0.8-4.8) 05/11/23 05:23 [place] # (Auto) 0.4 10^3/uL (0.2-0.9) 05/11/23 05:23 Eos # (Auto) 0.1 10^3/uL (0.0-0.8) 05/11/23 05:23 Baso # (Auto) 0.0 10^3/uL (0.0-0.1) 05/11/23 05:23 Nucleated RBC % (auto) 0 % 05/11/23 05: Nucleated RBCs # 0.0 /100WBC 05/11/23 05:23 Sodium 139 mmol/L (136-145) 05/11/23 05:23 Potassium 3.8 mmol/L (3.5-5.1) 05/11/23 05:23 Chloride 102 mmol/L (98-107) 05/11/23 05:23 Carbon Dioxide 28 mmol/L (22-29) 05/11/23 05:23 Anion Gap 12.8 (5-19) 05/11/23 05:23 BUN 16 mg/dL (8-23) 05/11/23 05:23 Creatinine 0.9 mg/dL (0.7-1.2) 05/11/23 05:23 GFR Calculation Not Reportable 05/11/23 05:23 Glucose 133 mg/dL (65-115) H 05/11/23 05:23 Calculated Osmolality 291 mOsm/kg (285-295) 05/11/23 05:23 Calcium 9.0 mg/dL (8.5-10.5) 05/11/23 05:23 Total Bilirubin 0.5 mg/dL (0.15-1.2) 05/11/23 05:23 AST 24 U/L (0-40) 05/11/23 05:23 ALT 22 U/L (0-41) 05/11/23 05:23 Alkaline Phosphatase 85 U/L (40-130) 05/11/23 05:23 Total Protein 6.5 g/dL (6.6-8.7) L 05/11/23 05:23 Albumin 4.0 g/dL (3.5-5.2) 05/11/23 05: Globulin 2.5 g/dL (1.3-4.6) 05/11/23 05: Lipase 37 U/L (13-60) 05/11/23 05:23 Urine Color Yellow (Yellow) 05/11/23 07:25 Urine Appearance Clear (CLEAR) 05/11/23 07:25 Urine pH 8 (5-7) H 05/11/23 07:25 Ur Specific [place] 1.005 (1.005-1.030) 05/11/23 07:25 Urine Protein Neg (Negative) 05/11/23 07:25 Urine Glucose (UA) Norm (Normal) 05/11/23 07:25 Urine Ketones Negative (Negative) 05/11/23 07:25 Urine Blood Neg (Negative) 05/11/23 07:25 Urine Nitrate Negative (Negative) 05/11/23 07:25 Urine Bilirubin Neg (Negative) 05/11/23 07:25 Urine Urobilinogen Neg mg/dL (Negative) 05/11/23 07:25 Ur Leukocyte Esterase Negative (Negative) 05/11/23 07:25 All radiology interpretation(s) finalized by discharge Discharge Plan Discharge Patient Disposition: Home Clinical Impression: Rib pain on left side, Constipation, Incidental pulmonary nodule Condition: Stable Prescriptions: New tramadol 50 mg tablet 25 mg PO Q6H PRN (Reason: pain) Qty: 10 0RF No Action aspirin [Adult Aspirin Regimen] 81 mg tablet,delayed release (DR/EC) 81 mg PO DAILY omega-3 fatty acids [Fish Oil Concentrate] 1,000 mg capsule 1,000 mg PO DAILY multivitamin Tablet 1 tab PO DAILY Zyrtec 10 mg capsule PO tadalafil [Cialis] 5 mg tablet 5 mg PO .Q3days PRN (Reason: sexual activity) Qty: 30 11RF hydrochlorothiazide 25 mg tablet 25 mg PO DAILY Qty: 90 3RF levothyroxine 150 mcg tablet See Rx Instructions .ROUTE .COMPLEX Qty: 90 3RF Dose Instruction: TAKE 1 TABLET BY MOUTH EVERY DAY Rx Instructions: TAKE 1 TABLET BY MOUTH EVERY DAY losartan 25 mg tablet See Rx Instructions .ROUTE .COMPLEX Qty: 90 3RF Dose Instruction: TAKE 1 TABLET BY MOUTH EVERY DAY Rx Instructions: TAKE 1 TABLET BY MOUTH EVERY DAY lovastatin 20 mg tablet See Rx Instructions .ROUTE .COMPLEX Qty: 90 3RF Dose Instruction: TAKE 1 TABLET BY MOUTH EVERY DAY Rx Instructions: TAKE 1 TABLET BY MOUTH EVERY DAY memantine [Namenda] 10 mg tablet 10 mg PO BID Qty: 60 5RF temazepam 30 mg capsule 30 mg PO BEDTIME PRN (Reason: sleep) Qty: 30 0RF RSVPreF3 antigen-AS01E (PF) 120 mcg/0.5 mL suspension for reconstitution 0.5 ml IM ONCE Qty: 1 0RF Discharge Orders: Discharge ED (Routine); Ordered 05/11/23 Ordered By: Titus Pruett Referrals: Jovanny Caraballo MD [Primary Care Provider] - Discharge Diet: Usual diet Discharge Activity: Resume usual activity Patient Instructions: Opioid Safety, Pain Management Activity Restrictions/Additional Instructions: Thank you for choosing [facility] for your healthcare needs today. Please realize this is an emergency room and that we are providing you with a medical screening exam and this may not be complete and all inclusive of all the testing and or work up that you may need to determine your ailment or severity of your illness. It is very important that you follow up as instructed or that you return to the Emergency Department should you have concerns or if your condition changes or worsens in any way. You were seen today for left flank pain. Laboratory studies and CT done were unremarkable. There was an incidental finding of a small pulmonary nodule at the base of the left lung this should be followed up as an outpatient with Dr. Blood. You were given pain medications to use as needed. There was no sign of infection no sign of kidney stone no sign of bowel obstruction. You did have some mild constipation you can use some [id number] laxative to attempt to relieve this. Coding Level of Care Code ED Cementer for Delta Ledezma
[2023-05-11 05:27] LABS: Basophils % 0.6 %; Eosinophils # 0.1 10^3/uL (0.0-0.8); Eosinophils % 1.4 %; Hematocrit 44.7 % (37-53); Lymphocytes # 1.1 10^3/uL (0.8-4.8); Lymphocytes % 21.4 %; Mean Corpuscular Hemoglobin 33.8 pg (27-33); Mean Corpuscular Volume 99.3 fl (82-101); Monocytes # 0.4 10^3/uL (0.2-0.9); Monocytes % 7.6 %; Neutrophils # 3.44 10^3/uL (1.8-7.7); Neutrophils % 68.8 %; Nucleated Red Blood Cells % 0 %; Platelet Count 135 10^3/cmm (157-399); Red Cell Distribution Width 11.8 % (12.1-15.1)
[2023-05-11 05:44] LABS: Alanine Aminotransferase 22 U/L (0-41); Alkaline Phosphatase 85 U/L (40-130); Anion Gap 12.8 (5-19); Aspartate Amino Transferase 24 U/L (0-40); Blood Urea Nitrogen 16 mg/dL (8-23); Carbon Dioxide 28 mmol/L (22-29); Chloride 102 mmol/L (98-107); Globulin 2.5 g/dL (1.3-4.6); Glucose 133 mg/dL (65-115); Lipase 37 U/L (13-60); Osmolality Calculated 291 mOsm/kg (285-295); Potassium 3.8 mmol/L (3.5-5.1); Sodium 139 mmol/L (136-145); Total Bilirubin 0.5 mg/dL (0.15-1.2); Total Protein 6.5 g/dL (6.6-8.7)
[2023-05-11 05:53] VITALS: RESP 14; O2SAT 98
[2023-05-11] MEDS: ondansetron 2 mg/ML SDV 2 mL 4 MG IVP (05:53)
[2023-05-11] MEDS: morphine 4 mg/mL SDV 1 mL IVP (05:53)
[2023-05-11] MEDS: sodium chloride 0.9% 1,000 ML 999 ML IV (05:54)
[2023-05-11 05:55] VITALS: BP 168/83; PULSE 48; RESP 15; O2SAT 98
[2023-05-11 06:47] VITALS: PULSE 59; RESP 18; O2SAT 98
[2023-05-11 07:30] LABS: Add Urine Microscopic? NO; Charge for UA Resulting for Rev
[2023-05-11] MEDS: morphine 4 mg/mL SDV 1 mL 2 MG IVP (07:34)
[2023-05-11 07:39] LABS: Urine Appearance Clear (CLEAR); Urine Color Yellow (Yellow)
[2023-05-11 07:40] LABS: Bilirubin Urine Neg (Negative); Blood Urine Neg (Negative); Glucose Urine UA Norm (Normal); Ketones Urine Negative (Negative); Leukocyte Esterase Urine Negative (Negative); Nitrate Urine Negative (Negative); Protein Urine Neg (Negative); Specific Gravity, Urine 1.005 (1.005-1.030); Urobilinogen Urine Neg (Negative); pH Urine 8 (5-7)
== END 2023-05-11 09:08 | disposition home or self-care (01) ==
PROVIDERS: Emergency Medicine; Emergency Provider Family Medicine; PCP Family Medicine
DX: R07.89 Other chest pain (principal); K59.00 Constipation, unspecified; R91.1 Solitary pulmonary nodule; Z79.82 Long term (current) use of aspirin; K80.20 Calculus of gallbladder without cholecystitis without obstruction; Z87.891 Personal history of nicotine dependence; F03.90 Unspecified dementia, unspecified severity, without behavioral disturbance, psychotic disturbance, mood disturbance, and anxiety; E78.5 Hyperlipidemia, unspecified; I10 Essential (primary) hypertension
CPT/HCPCS: 74176; 80053; 81003; 83690; 85025; 96361; 96374; 96375; 96376; 99285; J2270; J2405; J7030

== ENCOUNTER 2023-05-25 10:18 | Outpatient (CLI) | payer MEDICARE, OTHER, SELFPAY ==
--- NOTE | 2023-05-25 10:30 | CT_ITS ---
WS: [id number] CT scan of the chest without IV contrast, additional two-dimensional coronal and sagittal reconstruct ion was performed. 05/25/2023 Clinical Data: Left-sided rib pain and lung nodule Comparison: None. DLP: 309.[address] scans at [facility] use at least one of these dose optimization techniques: automated e xposure control; mA and/or kV adjustment per patient size (includes targeted exams where dose is matc hed to clinical indication); or iterative reconstruction. Findings: No nodules, masses or effusions are seen. There is a calcified granuloma in the left lower lobe. The heart size is normal with no pericardial effusion. There is coronary artery calcification. The pulmon artur arterial system and thoracic aorta demonstrate no abnormalities or dilatations. There is no axill artur or significant mediastinal adenopathy. No pneumonia or pneumothorax is seen. The bony thorax show s no abnormalities. The upper abdomen demonstrates numerous gallstones. There is a small nonobstructing central right andrea al calculus. 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 There is a dextroscoliosis. Impression: 1. Calcified granuloma in left lower lobe. 2. Minimal coronary artery calcification. 3. Cholelithiasis and right renal stone.
== END 2023-05-25 10:19 | disposition home or self-care (01) ==
LOC: RAD 10:19
PROVIDERS: PCP Family Medicine; Visit Provider Family Medicine
DX: R91.1 Solitary pulmonary nodule (principal); R07.81 Pleurodynia; J98.4 Other disorders of lung; K80.20 Calculus of gallbladder without cholecystitis without obstruction; N20.0 Calculus of kidney
CPT/HCPCS: 71250

== ENCOUNTER → 2023-09-13 14:34 | Outpatient (BNVA) | payer MEDICARE, OTHER, SELFPAY | PROVIDERS: PCP Family Medicine; Visit Provider Dermatology | DX: L82.1 Other seborrheic keratosis (principal); L81.4 Other melanin hyperpigmentation; D48.5 Neoplasm of uncertain behavior of skin; L57.0 Actinic keratosis; Z86.006 Personal history of melanoma in-situ | CPT/HCPCS: 11102; 17000; 99213 ==

== ENCOUNTER → 2023-10-11 09:21 | Outpatient (BNVA) | payer MEDICARE, OTHER, SELFPAY | PROVIDERS: PCP Family Medicine; Visit Provider Dermatology | DX: C44.319 Basal cell carcinoma of skin of other parts of face (principal); C44.391 Other specified malignant neoplasm of skin of nose | CPT/HCPCS: 13132; 17311 ==

== ENCOUNTER → 2023-10-14 07:53 | Outpatient (BNVA) | payer MEDICARE, OTHER, SELFPAY | PROVIDERS: PCP Family Medicine; Visit Provider Dermatology | DX: Z48.817 Encounter for surgical aftercare following surgery on the skin and subcutaneous tissue (principal); L57.0 Actinic keratosis | CPT/HCPCS: 17000; 99212 ==

== ENCOUNTER → 2023-10-25 08:07 | Outpatient (BNVA) | payer MEDICARE, OTHER, SELFPAY | PROVIDERS: PCP Family Medicine; Visit Provider Dermatology | DX: Z48.02 Encounter for removal of sutures (principal) | CPT/HCPCS: 99212; 99398 ==

== ENCOUNTER → 2024-01-04 08:02 | Outpatient (BNVA) | payer MEDICARE, OTHER, SELFPAY | PROVIDERS: PCP Family Medicine; Visit Provider Nurse Practitioner Family | DX: L57.0 Actinic keratosis (principal); L82.1 Other seborrheic keratosis; L81.4 Other melanin hyperpigmentation; Z86.006 Personal history of melanoma in-situ; Z85.828 Personal history of other malignant neoplasm of skin | CPT/HCPCS: 17000; 99213 ==

== ENCOUNTER → 2024-04-05 09:25 | Outpatient (BNVA) | payer MEDICARE, OTHER, SELFPAY | PROVIDERS: PCP Family Medicine; Visit Provider Nurse Practitioner Family | DX: D48.5 Neoplasm of uncertain behavior of skin (principal) | CPT/HCPCS: 11102; 17000; 99213 ==

== ENCOUNTER → 2024-04-24 07:50 | Outpatient (BNVA) | payer MEDICARE, OTHER, SELFPAY | PROVIDERS: PCP Family Medicine; Visit Provider Dermatology | DX: C44.319 Basal cell carcinoma of skin of other parts of face (principal); C44.619 Basal cell carcinoma of skin of left upper limb, including shoulder; D48.5 Neoplasm of uncertain behavior of skin; L82.1 Other seborrheic keratosis; D22.5 Melanocytic nevi of trunk; L57.0 Actinic keratosis | CPT/HCPCS: 11102; 13132; 17000; 17270; 17311; 99213 ==

== ENCOUNTER → 2024-05-04 08:08 | Outpatient (BNVA) | payer MEDICARE, OTHER, SELFPAY | PROVIDERS: PCP Family Medicine; Visit Provider Dermatology | DX: C44.311 Basal cell carcinoma of skin of nose (principal); D48.5 Neoplasm of uncertain behavior of skin | CPT/HCPCS: 11102; 14060; 17311 ==

== ENCOUNTER → 2024-05-14 07:59 | Outpatient (BNVA) | payer MEDICARE, OTHER, SELFPAY | PROVIDERS: PCP Family Medicine; Visit Provider Dermatology | DX: C44.311 Basal cell carcinoma of skin of nose (principal); Z08 Encounter for follow-up examination after completed treatment for malignant neoplasm; Z85.828 Personal history of other malignant neoplasm of skin | CPT/HCPCS: 99214 ==

== ENCOUNTER → 2024-09-20 07:57 | Outpatient (BNVA) | payer MEDICARE, OTHER, SELFPAY | PROVIDERS: PCP Family Medicine; Visit Provider Family Medicine | DX: I10 Essential (primary) hypertension (principal); F03.90 Unspecified dementia, unspecified severity, without behavioral disturbance, psychotic disturbance, mood disturbance, and anxiety | CPT/HCPCS: 80053; 80061; 85025 ==

== ENCOUNTER → 2024-09-27 08:10 | Outpatient (BNVA) | payer MEDICARE, OTHER, SELFPAY | PROVIDERS: PCP Family Medicine; Visit Provider Dermatology | DX: C44.311 Basal cell carcinoma of skin of nose (principal); Z08 Encounter for follow-up examination after completed treatment for malignant neoplasm; Z85.828 Personal history of other malignant neoplasm of skin; L57.0 Actinic keratosis | CPT/HCPCS: 17000; 17280; 99214 ==

== ENCOUNTER → 2024-11-13 14:32 | Outpatient (BNVA) | payer MEDICARE, OTHER, SELFPAY | PROVIDERS: PCP Family Medicine; Visit Provider Nurse Practitioner Family | DX: L24.4 Irritant contact dermatitis due to drugs in contact with skin (principal); L81.4 Other melanin hyperpigmentation; Z85.828 Personal history of other malignant neoplasm of skin; Z08 Encounter for follow-up examination after completed treatment for malignant neoplasm; Z86.006 Personal history of melanoma in-situ | CPT/HCPCS: 99213 ==

== ENCOUNTER → 2024-12-24 08:33 | Outpatient (BNVA) | payer MEDICARE, OTHER, SELFPAY | PROVIDERS: PCP Family Medicine; Visit Provider Dermatology | DX: C44.311 Basal cell carcinoma of skin of nose (principal); L24.4 Irritant contact dermatitis due to drugs in contact with skin; L81.4 Other melanin hyperpigmentation; Z85.828 Personal history of other malignant neoplasm of skin; Z08 Encounter for follow-up examination after completed treatment for malignant neoplasm; Z86.006 Personal history of melanoma in-situ; L57.0 Actinic keratosis | CPT/HCPCS: 17000; 99214 ==

== ENCOUNTER → 2025-03-04 08:24 | Outpatient (BNVA) | payer MEDICARE, OTHER, SELFPAY | PROVIDERS: PCP Family Medicine; Visit Provider Dermatology | DX: C44.311 Basal cell carcinoma of skin of nose (principal); L81.4 Other melanin hyperpigmentation; D22.39 Melanocytic nevi of other parts of face; L82.1 Other seborrheic keratosis; Z85.828 Personal history of other malignant neoplasm of skin; Z08 Encounter for follow-up examination after completed treatment for malignant neoplasm; Z86.006 Personal history of melanoma in-situ; L57.0 Actinic keratosis | CPT/HCPCS: 17000; 99214 ==

== ENCOUNTER → 2025-04-22 09:30 | Outpatient (BNVA) | payer MEDICARE, OTHER, SELFPAY | PROVIDERS: PCP Family Medicine; Visit Provider Dermatology | DX: C44.311 Basal cell carcinoma of skin of nose (principal); L81.4 Other melanin hyperpigmentation; D22.39 Melanocytic nevi of other parts of face; Z86.006 Personal history of melanoma in-situ; Z08 Encounter for follow-up examination after completed treatment for malignant neoplasm; Z85.828 Personal history of other malignant neoplasm of skin; D48.5 Neoplasm of uncertain behavior of skin; L57.0 Actinic keratosis | CPT/HCPCS: 17000; 69100; 99213 ==

== ENCOUNTER → 2025-05-03 09:11 | Outpatient (BNVA) | payer MEDICARE, OTHER, SELFPAY | PROVIDERS: PCP Family Medicine; Visit Provider Dermatology | DX: C44.311 Basal cell carcinoma of skin of nose (principal); C44.222 Squamous cell carcinoma of skin of right ear and external auricular canal | CPT/HCPCS: 11642; 13152; 99213 ==